=== PATIENT | male | born 1970 | race American Indian/Alaskan Native ===

== ENCOUNTER 2021-02-26 17:54 | Emergency (ER) | payer SELFPAY ==
[2021-02-26 20:47] VITALS: BP 142/92
--- NOTE | 2021-02-26 20:49 | Emergency Department Report ---
ED General Adult HPI - General Chief complaint: Fall Stated complaint: FALL, RIB PAIN, NECK PAIN Time Seen by Provider: 02/26/21 20:47 Source: patient Mode of arrival: Ambulatory Limitations: No Limitations - History of Present Illness Initial comments: 50-year-old male patient presents emergency department with complaints of traumatic left-sided chest wall pain status post mechanical fall. Patient states he was walking down a staircase today when he slipped and fell down approximately 6 stairs, striking the left side of his chest along the staircase as he fell. Patient hit the back of his head/neck on one of the stairs but did not lose consciousness. He has been ambulatory without assistance since the fall. He is not anticoagulated. Denies vision changes, seizure, syncope, paresthesias, numbness, neck pain, shortness of breath, nausea, vomiting, weakness. Denies all other complaints at this time. - Related Data Previous Rx's Medication Instructions Recorded Last Taken Type Lidocaine [Lidoderm] 1 each TP BID #20 adh..patch 02/26/21 Unknown Rx Naproxen 500 mg PO BID #20 tablet 02/26/21 Unknown Rx Allergies Allergy/AdvReac Type Severity Reaction Status Date / Time No Known Allergies Allergy Unverified 02/26/21 20:47 ED Review of Systems ROS: Stated complaint: FALL, RIB PAIN, NECK PAIN Other details as noted in HPI Other: CARDIOVASCULAR: Positive for chest wall pain. PULMONARY: Negative for dyspnea. GASTROINTESTINAL: Negative for abdominal pain. MUSCULOSKELETAL: Positive for neck pain. NEUROLOGICAL: Positive for headache. INTEGUMENTARY: Negative for ecchymosis. ED Past Medical Hx - Past Medical History Previous Medical History?: No - Medications Home Medications: Home Medications Medication Instructions Recorded Confirmed Last Taken Type Lidocaine [Lidoderm] 1 each TP BID #20 adh..patch 02/26/21 Unknown Rx Naproxen 500 mg PO BID #20 tablet 02/26/21 Unknown Rx ED Physical Exam - General Limitations: No Limitations - Other Other exam information: Airway: Patent and intact. Trachea is midline. Breathing: Clear to auscultation bilaterally. No respiratory distress. Circulation: Regular rate and rhythm, no murmurs, no pulse deficit, normal peripheral perfusion. Deficit (Neuro): Awake, alert, appropriately interactive. GCS 15. Strength and sensation intact. Follows commands. No focal deficits. HEENT: Normocephalic, atraumatic. EOMI. Pupils equal and round. No malocclusion. Facial bones are stable. No ecchymosis suggestive of basilar skull fracture. Neck: No posterior midline cervical tenderness. No step-offs. Active rotation of the cervical spine intact bilaterally. Chest Wall: Equal chest rise. Tenderness to palpation along left anterolateral chest wall. No crepitus. No deformity. Breathing is non-paradoxical. Abdominal: Soft, non-tender. No guarding, rigidity, or rebound. No discoloration. No organomegaly. Skin: No abrasions, lacerations, or ecchymosis. Back: No midline thoracic or lumbar tenderness. No step-offs. Extremities: Non-tender. Moves all four extremities spontaneously. Full range of motion intact. No apparent deformity. Neurovascular and motor/sensory function intact. ED Course Vital Signs 02/26/21 20:44 Temperature 98.2 F Pulse Rate 87 Respiratory 18 Rate Blood Pressure 142/92 [Right] O2 Sat by Pulse 99 Oximetry ED Medical Decision Making - Medical Decision Making Differential diagnosis including but not limited to: rib fracture, pneumothorax, hemothorax, pulmonary contusion, rib contusion, sprain/strain Patient presents with complaints of acute traumatic headache. Patient meets none of the following criteria: age < 16 years, (+) anticoagulation, seizure following injury, GCS < 15, clinical evidence of skull fracture, > 2 episodes of vomiting, age > 65 years, retrograde amnesia to the event, "dangerous" mechanism. Therefore, according to the [place] Rule, patient does not have a statistically significant chance of an intracranial injury requiring neurosurgical intervention; CT of the head is not indicated at this time. Patient meets none of the following criteria: age <16 years or > 65 years, extremity paresthesias, dangerous mechanism of injury, GCS < 15, unstable vital signs, acute paralysis, known vertebral disease, previous cervical spine injury. The following low-risk factors are present: sitting position in the emergency department, ambulatory without assistance, no midline tenderness. Patient is able to actively rotate the neck 45 degrees left and right. Cervical spine cleared clinically per [place] rule; no imaging required. On reevaluation, patient remains stable. No hypoxia, no respiratory distress. Chest x-ray without acute process. Specifically, no evidence of pneumothorax. It was explained to the patient that plain radiographs are not 100% sensitive for detection of nondisplaced rib fractures and further evaluation may be indicated on an outpatient basis if symptoms persist. Patient expressed understanding. He will be discharged home with appropriate analgesics and referred to primary care provider for close outpatient follow-up. Patient is agreeable to plan of care. Strict return precautions provided. Repeat exam is unremarkable and benign. History, exam, diagnostic testing, and c urrent condition do not suggest worrisome pathology to warrant further testing, continued ED treatment, admission, or surgical evaluation at this point. Given the low probability of a significant medical illness, it would be more likely to result in harm than benefit to perform further testing at this stage. Discussed findings, presumptive diagnosis, need for follow-up and specific signs/symptoms that should prompt immediate return to the emergency department. Instructions were explained in detail to the patient in addition to giving written discharge information. Patient expressed understanding and was given the opportunity to ask questions, all of which were satisfactorily answered prior to discharge home. Critical care attestation.: If time is entered above; I have spent that time in minutes in the direct care of this critically ill patient, excluding procedure time. ED Disposition Clinical Impression: Chest wall contusion Qualifiers: Encounter type: initial encounter Laterality: left Qualified Code(s): S20.212A - Contusion of left front wall of thorax, initial encounter Disposition: DC-01 TO HOME OR SELFCARE Is pt being admited?: No Does the pt Need Aspirin: No Condition: Stable Instructions: Contusion, [id number] Additional Instructions: Take Tylenol every 4 hours as needed for pain. Take Naprosyn with food twice daily as needed for pain. Apply Lidoderm patches to affected areas as needed for pain. Apply ice to affected area as needed. Follow-up with your primary care provider this week. Call tomorrow to schedule an appointment. Return to the emergency department immediately for new or worsening symptoms. Prescriptions: Lidocaine [Lidoderm] 1 each TP BID #20 adh..patch Naproxen 500 mg PO BID #20 tablet Referrals: MANJINDER DIAZ MD [Staff Physician] - 3-5 Days Time of Disposition: 21:49
--- NOTE | 2021-02-26 21:14 | XRay Report ---
CHEST 2 VIEWS INDICATION / CLINICAL INFORMATION: left side chest pain s/p fall down 6 stairs. COMPARISON: None available. FINDINGS: SUPPORT DEVICES: None. HEART / MEDIASTINUM: No significant abnormality. LUNGS / PLEURA: No significant pulmonary or pleural abnormality. No pneumothorax. ADDITIONAL FINDINGS: No displaced rib fracture. IMPRESSION: 1. No acute findings. Signer Name: Glen Samson MD Signed: 02/26/2021 9:09 PM Workstation Name: [id number]
== END 2021-02-26 22:13 | disposition home or self-care (01) ==
LOC: ED 17:54
DX: S20.212A Contusion of left front wall of thorax, initial encounter (principal); Z79.899 Other long term (current) drug therapy; W10.9XXA Fall (on) (from) unspecified stairs and steps, initial encounter; Y93.89 Activity, other specified; Y92.89 Other specified places as the place of occurrence of the external cause; Y99.8 Other external cause status
CPT/HCPCS: 71046; 99283